=== PATIENT | female | born 1955 | race Caucasian/White ===

== ENCOUNTER 2017-05-06 12:08 | Inpatient (IN) | payer BC, MEDICARE ==
--- NOTE | 2017-05-06 13:15 | ER Document Report ---
ED Fall - General Mode of Arrival: Wheelchair Information source: Patient - HPI Patient complains to provider of: right leg pain Associated symptoms: Other - See above <MAIA PASTRANA - Last Filed: 05/06/17 16:33> <MARCUS SILVER - Last Filed: 05/06/17 19:50> - General Chief Complaint: Leg Pain Stated Complaint: RIGHT LEG PAIN Time Seen by Provider: 05/06/17 12:38 Notes: Patient is a 62 year old female who presents to the emergency department complaining of right knee pain after a fall just prior to arrival. Patient states she was on a step ladder that was not fully locked about 2 feet up and fell backwards landing on her butt. Patient reports she must have "twisted" her leg during the fall and complains of pain and swelling in her right knee and right lower leg with movement, as well as back pain. Patient states she has broken her right leg before and has hardware in her knee. Patient denies hitting her head, loss of consciousness, and neck pain. (MAIA PASTRANA) - Related data Allergies/Adverse Reactions: No Known Allergies Allergy (Unverified 05/06/17 14:14) Past Medical History - General Information source: Patient - Social History Smoking Status: Never Smoker Chew tobacco use (# tins/day): No Frequency of alcohol use: None Drug Abuse: None Family History: Reviewed & Not Pertinent - See above Psychiatric Medical History: Reports: Hx Depression Past Surgical History: Reports: Hx Abdominal Surgery - gasdtric bypass-2005, Hx Orthopedic Surgery - rt knee, bilateral wrist <MAIA PASTRANA - Last Filed: 05/06/17 16:33> Review of Systems - Review of Systems Constitutional: No symptoms reported EENT: No symptoms reported Cardiovascular: No symptoms reported Respiratory: No symptoms reported Gastrointestinal: No symptoms reported Genitourinary: No symptoms reported Female Genitourinary: No symptoms reported Musculoskeletal: See HPI, Back pain, Joint pain, Joint swelling. denies: Neck pain Skin: No symptoms reported Hematologic/Lymphatic: No symptoms reported Neurological/Psychological: denies: Lost consciousness -: Yes All other systems reviewed and negative <MAIA PASTRANA - Last Filed: 05/06/17 16:33> Physical Exam - Vital signs Interpretation: Normal - Back Back: Tender - L1-L4. No: CVA tenderness - Extremities General upper extremity: Normal inspection, Normal ROM, Normal strength General lower extremity: Tender - Knee Shoulder: Normal Arm: Normal Forearm: Normal Wrist: Normal Hand: Normal Hip: Normal Knee: Tender - Right knee, Joint effusion, Pain with ROM, Tender joint line - Neurological Neuro grossly intact: Yes Cognition: Normal Orientation: AAOx4 [place] Coma Scale Eye Opening: Spontaneous [place] Coma Scale Verbal: Oriented [place] Coma Scale Motor: Obeys Commands [place] Coma Scale Total: 15 Speech: Normal Motor strength normal: LUE, RUE, LLE, RLE Sensory: Normal - Psychological Associated symptoms: Normal affect, Normal mood - Skin Skin Temperature: Warm Skin Moisture: Dry Skin Color: Normal <MARCUS SILVER - Last Filed: 05/06/17 19:50> - Vital signs Vitals: Temp Pulse Resp BP Pulse Ox 98.2 F 67 16 118/59 L 96 05/06/17 12:43 05/06/17 12:43 05/06/17 12:43 05/06/17 12:43 05/06/17 12:43 Course - Laboratory Result Diagrams: 05/06/17 15:00 05/06/17 15:00 - Consults Dr. Lagunas Time consulted: 14:00 - Discussed patient's condition, Dr. Lagunas states no surgical intervention needed at this time <MAIA PASTRANA - Last Filed: 05/06/17 16:33> - Laboratory Result Diagrams: 05/06/17 15:00 05/06/17 15:00 - Diagnostic Test Radiology reviewed: Reports reviewed - Consults Dr. Lagunas Consulted provider: other - Called back ay 18:30. Pleae admit to Medicine Dr. Doyle Time consulted: 18:30 - medicate, call back after 1900 <MARCUS SILVER - Last Filed: 05/06/17 19:50> - Re-evaluation Re-evalutation: 05/06/17 19:46 Patient is a 62-year-old female who comes in after a fall off a ladder. She is a compression fracture and a sprain of her right knee. I have discussed her with orthopedics and they does not appear to be anything surgical at this time. Patient is comfortable when she is lying flat. When she attempts to get up she goes into severe pain in her back. She cannot weight-bear in her right knee. She becomes nauseated from the pain. Patient has been discussed with the hospitalist service and will be admitted for pain control. She is neurovascularly intact otherwise. (MARCUS SILVER) - Vital Signs Vital signs: Temp Pulse Resp BP Pulse Ox 98.2 F 72 16 123/65 94 05/06/17 12:43 05/06/17 16:07 05/06/17 16:07 05/06/17 16:07 05/06/17 16:07 - Laboratory Laboratory results interpreted by me: 05/06/17 05/06/17 15:00 15:00 Seg Neutrophils % 83.6 H Lymphocytes % 8.5 L Carbon Dioxide 21 L BUN 23 H Creatinine 0.48 L Discharge <MAIA PASTRANA - Last Filed: 05/06/17 16:33> - Discharge Admitting Provider: Hospitalist - [facility] Admitted: Medical Floor <MARCUS SILVER - Last Filed: 05/06/17 19:50> - Discharge Clinical Impression: Compression fracture of L1 lumbar vertebra Qualifiers: Encounter type: initial encounter Fracture type: closed Qualified Code(s): S32.010A - Wedge compression fracture of first lumbar vertebra, initial encounter for closed fracture Knee sprain Qualifiers: Encounter type: initial encounter Involved ligament of knee: other ligament Laterality: right Qualified Code(s): S83.8X1A - Sprain of other specified parts of right knee, initial encounter Condition: Stable Disposition: ADMITTED INPATIENT Referrals: REGLA ORTIZ MD [Primary Care Provider] - Follow up as needed Scribe Attestation: 05/06/17 19:46 I personally performed the services described in the documentation, reviewed and edited the documentation which was dictated to the scribe in my presence, and it accurately records my words and actions. (MARCUS SILVER) Scribe Documentation - Scribe Written by Dereck:: dereck Urbina, 05/06/17, 1489 acting as scribe for :: Beti <MAIA PASTRANA - Last Filed: 05/06/17 16:33>
[2017-05-06] MEDS ORDERED: FENTANYL CITRATE INJ/PF 100 MCG/2 ML AMPUL IV ONE ×2 (13:16→16:10)
[2017-05-06 15:13] LABS: ABSOLUTE LYMPHOCYTES (AUTO) 0.6 10^3/uL (0.5-4.7); ABSOLUTE MONOCYTES (AUTO) 0.5 10^3/uL (0.1-1.4); BASOPHILS % (AUTO) 0.1 % (0-2); EOSINOPHILS % (AUTO) 0.3 % (0-6); HEMATOCRIT 39.5 % (36.0-47.0); HEMOGLOBIN 12.6 g/dL (12.0-15.5); HGB HCT DIFFERENCE -1.7; LYMPHOCYTES % (AUTO) 8.5 % (13-45); MEAN CORPUSCULAR HEMOGLOBIN 29.7 pg (27.0-33.4); MEAN CORPUSCULAR VOLUME 93 fl (80-97); MONOCYTES % (AUTO) 7.5 % (3-13); RED BLOOD COUNT 4.25 10^6/uL (3.72-5.28); SEGMENTED NEUTROPHILS % (AUTO) 83.6 % (42-78); WHITE BLOOD COUNT 7.1 10^3/uL (4.0-10.5)
--- NOTE | 2017-05-06 15:16 | RADIOLOGY REPORT (SQ) ---
EXAM DESCRIPTION: KNEE RIGHT 4 VIEWS COMPLETED DATE/TIME: 05/06/2017 2:32 pm REASON FOR STUDY: fall, pain COMPARISON: None. NUMBER OF VIEWS: Four views. TECHNIQUE: AP, lateral, and both oblique radiographic images acquired of the right knee. LIMITATIONS: None. FINDINGS: MINERALIZATION: Osteopenic BONES: No acute displaced fracture is identified. Patient has 2 lag screws across the proximal right tibial metaphysis from old healed tibial plateau fracture JOINT: There is a fat fluid level in the suprapatellar recess indicating a fracture of the knee. Mil d chondrocalcinosis in the medial and lateral compartments. SOFT TISSUES: No soft tissue swelling. No radio-opaque foreign body. OTHER: No other significant finding. IMPRESSION: Lipoma hemarthrosis from fracture. A displaced fracture is not identified. Patient will undergo CT of the right knee shortly. TECHNICAL DOCUMENTATION: JOB ID: [id number] [employer]- All Rights Reserved
--- NOTE | 2017-05-06 15:18 | RADIOLOGY REPORT (SQ) ---
EXAM DESCRIPTION: L SPINE WHOLE COMPLETED DATE/TIME: 05/06/2017 2:32 pm REASON FOR STUDY: fall ,pain COMPARISON: None. NUMBER OF VIEWS: Five views including obliques. TECHNIQUE: AP, lateral, oblique, and sacral radiographic images acquired of the lumbar spine. LIMITATIONS: None. FINDINGS: MINERALIZATION: Osteoporotic SEGMENTATION: Normal. No transitional anatomy. ALIGNMENT: Normal. VERTEBRAE: L1 acute compression deformity with less than 25% overall loss of vertebral body height. DISCS: Preserved height. No significant osteophytes or end plate irregularity. POSTERIOR ELEMENTS: Pedicles and facets are intact. No pars defect or posterior arch defects. Bilat eral lower lumbar facet arthropathy at L4-5 and L5-S1. HARDWARE: None in the spine. PARASPINAL SOFT TISSUES: Normal. PELVIS: Intact as visualized. No fractures or worrisome bone lesions. SI joints intact. OTHER: Surgical clips in the left upper quadrant. At the edge of the field of view a left upper quad rant calcification/ossification is present in the soft tissues. IMPRESSION: Acute L1 vertebral body compression deformity with less than 25% overall loss of height. TECHNICAL DOCUMENTATION: JOB ID: [id number] [employer]- All Rights Reserved
--- NOTE | 2017-05-06 15:20 | RADIOLOGY REPORT (SQ) ---
EXAM DESCRIPTION: CHEST PA/LAT COMPLETED DATE/TIME: 05/06/2017 2:32 pm REASON FOR STUDY: fall, pain COMPARISON: None. EXAM PARAMETERS: NUMBER OF VIEWS: two views TECHNIQUE: Digital Frontal and Lateral radiographic views of the chest acquired. RADIATION DOSE: NA LIMITATIONS: none FINDINGS: LUNGS AND PLEURA: No opacities, masses or pneumothorax. No pleural effusion. MEDIASTINUM AND HILAR STRUCTURES: No masses or contour abnormalities. HEART AND VASCULAR STRUCTURES: Heart normal size. No evidence for failure. BONES: No acute findings. HARDWARE: Surgical clips left axilla OTHER: Surgical clips at the GE junction with radiopaque material present, possibly barium IMPRESSION: No acute findings TECHNICAL DOCUMENTATION: JOB ID: [id number] [employer]- All Rights Reserved
--- NOTE | 2017-05-06 15:28 | RADIOLOGY REPORT (SQ) ---
EXAM DESCRIPTION: CT LUMBAR SPINE WITHOUT COMPLETED DATE/TIME: 05/06/2017 2:52 pm REASON FOR STUDY: fall, pain COMPARISON: Lumbar spine plain films same date TECHNIQUE: Axial images acquired through the lumbar spine without intravenous contrast. Images revi ewed with lung, soft tissue and bone windows. Reconstructed coronal and sagittal MPR images reviewed . All images stored on PACS. All CT scanners at this facility use dose modulation, iterative reconstruction, and/or weight based d osing when appropriate to reduce radiation dose to as low as reasonably achievable (ALARA). [facility]: Dose Right [facility]: CareDose [facility]: Dose Right [facility]: Teradose 4D [facility]: [employer] RADIATION DOSE: 21.41 mGy. LIMITATIONS: None. FINDINGS: SEGMENTATION: Normal. No transitional anatomy. ALIGNMENT: Normal. VERTEBRAL BODIES: Acute L1 compression deformity with less than 25% loss of height of the anterior ve rtebral body. Fracture lines do not appear to extend into the pedicles. There is no significant ret ropulsion of bony fragments. The other lumbar vertebral bodies are intact. DISCS: T12-L1 and L1-2 are unremarkable. At L2-3, mild central canal stenosis results from broad diffuse disc bulge and moderate bilateral fac et and ligament hypertrophy. This is best shown on axial image 43. There is no significant foramina l narrowing. At L3-4, borderline central canal stenosis results from mild diffuse posterior disc bulging and moder ate bilateral facet and ligament hypertrophy. Mild bilateral inferior foraminal narrowing without ex iting L3 nerve root impingement. At L4-5, moderate to high-grade central canal stenosis results from broad diffuse posterior disc bulg e and bony spurring, and bulky bilateral facet and ligament hypertrophy. This is best shown on axial image 68. Mild bilateral inferior foraminal narrowing without exiting L4 nerve root impingement. At L5-S1, no central or foraminal encroachment is present. Moderate bilateral facet hypertrophy. PEDICLES, TRANSVERSE PROCESSES: No fractures. No dislocation. No acute findings. FACETS, POSTERIOR ELEMENTS: No fractures. No dislocation. Multilevel arthropathy as above. HARDWARE: None in the spine. VISUALIZED RIBS: No fractures. SOFT TISSUES: No significant or acute finding in adjacent soft tissues. OTHER: No other significant finding. IMPRESSION: Acute L1 vertebral body compression deformity with less than 25% overall loss of height. TECHNICAL DOCUMENTATION: JOB ID: [id number] Quality ID # [id number]: Final reports with documentation of one or more dose reduction techniques (e.g., Au tomated exposure control, adjustment of the mA and/or kV according to patient size, use of iterative reconstruction technique) 2010 [employer]- All Rights Reserved
--- NOTE | 2017-05-06 15:35 | RADIOLOGY REPORT (SQ) ---
EXAM DESCRIPTION: CT RT LOWER EXTREMITY WITHOUT COMPLETED DATE/TIME: 05/06/2017 2:53 pm REASON FOR STUDY: fall, pain COMPARISON: Right knee films same date Right knee films 08/07/2010 CT right knee 08/06/2010 TECHNIQUE: CT scan of the right knee performed without intravenous or oral contrast. Images reviewe d with soft tissue and bone windows. Reconstructed coronal and sagittal MPR images reviewed. All im ages stored on PACS. All CT scanners at this facility use dose modulation, iterative reconstruction, and/or weight based d osing when appropriate to reduce radiation dose to as low as reasonably achievable (ALARA). [facility]: Dose Right [facility]: CareDose [facility]: Dose Right [facility]: Teradose 4D [facility]: [employer] RADIATION DOSE: 4.12 mGy. LIMITATIONS: None. FINDINGS: Bones are osteopenic. There is a definite lipohemarthrosis with a fat fluid level in the suprapatellar recess, best shown on axial image 38. There are 2 lag screws across the proximal tibial metaphysis, stabilizing the remote prior minimally depressed lateral tibial plateau fracture. No definite acute displaced fracture of the distal femur, proximal tibia, or proximal fibula is seen on today's CT. There is chondrocalcinosis in the medial and lateral compartments. No significant joint space narrow ing. No malalignment. IMPRESSION: Radiographically occult fracture of the right knee with a lipohemarthrosis TECHNICAL DOCUMENTATION: JOB ID: [id number] Quality ID # [id number]: Final reports with documentation of one or more dose reduction techniques (e.g., Au tomated exposure control, adjustment of the mA and/or kV according to patient size, use of iterative reconstruction technique) 2010 [employer]- All Rights Reserved
[2017-05-06 15:48] LABS: ANION GAP 12 (5-19); BLOOD UREA NITROGEN 23 mg/dL (7-20); CALCIUM 9.7 mg/dL (8.4-10.2); CARBON DIOXIDE 21 mmol/L (22-30); CHLORIDE 107 mmol/L (98-107); CREATININE RESULT 0.48 mg/dL (0.52-1.25); GLUCOSE 94 mg/dL (75-110); SODIUM 139.9 mmol/L (137-145)
[2017-05-06] MEDS ORDERED: ONDANSETRON HCL INJ/PF 4 MG/2 ML SDV IV ONE (18:24)
[2017-05-06] MEDS ORDERED: MELOXICAM 15 MG TABLET PO ONE (18:34)
[2017-05-06] MEDS ORDERED: CYCLOBENZAPRINE HCL 10 MG TABLET PO ONE (18:34)
[2017-05-06] MEDS ORDERED: DEXAMETHASONE SOD PHOSPHATE INJ 4 MG/1 ML VIAL IV ONE (18:34)
[2017-05-06] MEDS ORDERED: ACETAMINOPHEN 325 MG TABLET PO PRN (20:34)
[2017-05-06] MEDS ORDERED: MAGNESIUM HYDROXIDE SUSP 30 ML UDCUP PO PRN (20:34)
[2017-05-06] MEDS ORDERED: MAG HYDROX/AL HYDROX/SIMETH SUSP 30 ML UDCUP PO PRN (20:34)
[2017-05-06] MEDS ORDERED: PROMETHAZINE HCL 25 MG TABLET PO PRN (20:37)
[2017-05-06 20:55] LABS: APPEARANCE,URINE CLEAR; BILIRUBIN,URINE NEGATIVE (NEGATIVE); GLUCOSE, URINE NEGATIVE (NEGATIVE); KETONES,URINE TRACE mg/dL (NEGATIVE); LEUKOCYTE ESTERASE,URINE NEGATIVE (NEGATIVE); NITRITE,URINE NEGATIVE (NEGATIVE); PROTEIN,URINE NEGATIVE (NEGATIVE); URINE SPECIFIC GRAVITY 1.023; UROBILINOGEN,URINE NEGATIVE mg/dL (<2.0)
--- NOTE | 2017-05-06 21:01 | PDOC H&P ---
History of Present Illness Admission Date/PCP: 05/06/17 20:30 REGLA ORTIZ MD, [facility] Patient complains of: fall w/back, rt. knee pain History of Present Illness: TANA SILVA is a 62 year old female with underlying arthritis, easy bruising, mild anxiety and depression without suicidal or homicidal ideation, who presents to the emergency room after falling off a step ladder from a height of 20 inches. ladder apparently was not fully locked. She fell backwards, landing on her butt on a hardwood floor. States she must have "twisted" her right leg during the fall. Denies hitting her head, loss of consciousness, or neck pain. Prior to the above event, no complaints, including nausea vomiting, fever or chills. She is status post previous repair of a right tibial plateau fracture. Initial attempts by the emergency room physician were to discharge the patient, but she simply has too much pain upon even sitting up in bed. Prior to my being called, emergency room physician did discuss the patient with on-call orthopedics; surgery not felt necessary. Right knee immobilizer has been applied by the emergency room physician. Patient has been discussed with emergency room physician who evaluated the patient. . Laboratory results are listed in [facility] and are reviewed. X-ray summary results are listed below, with full report(s) reviewed. . Social history/personal habits: . Lives alone. No children. Self- employed senior property accountant. No use of alcohol tobacco or illicit drugs. No known drug allergies. Home medications initially autopopulated into [employer] may not accurately reflect patient's true medications, dosages, and/or frequencies. 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 According to patient, current medications include Prozac, Abilify, Provigil, and Topamax, the last of which she takes for insomnia. Patient not completely certain of dosages; all meds taken once daily. REVIEW OF SYSTEMS: Constitutional: No fever or chills. Eyes: Wears contacts for reading. ENT: No swallowing problems or complaints. Denies hearing loss. Pulmonary: No current complaints. Cardiovascular: No current complaints, including chest pain. Gastrointestinal: No current complaints, including nausea or vomiting. Skin: No current complaints, including rashes. Hematologic: Easy bruising. Neurologic: No current complaints, including numbness or tingling. Musculoskeletal: See history and present illness. Psychiatric: Mild anxiety and depression. Denies suicidal or homicidal ideation. Endocrine: No current complaints, including polyuria. Genitourinary: No current complaints, including dysuria. PHYSICAL EXAMINATION: 5 feet 8 inches tall. 81.6 kg. BMI 27.4 kg/m. Blood pressure 131/85. 95% saturation on room air. Respirations are 16 and unlabored. Pulse 75 and regular. Temperature 98.2. Slightly overweight otherwise well-nourished well-developed female appearing a bit younger than her stated age. Pleasant awake alert and cooperative. Appears to feel a bit under the weather, so to speak. Mildly anxious, without agitation. Female emergency room nurse Jackie is present. Skin is warm and dry. No grossly obvious evidence of rash in areas of skin examined. No subcutaneous nodules palpated. ENT: Hearing grossly normal to normal conversation. Tongue midline on protrusion pink and slightly tacky. Eyes: No scleral icterus. Pupils equal and reactive to light at 4 mm. [place] conjunctivae. No raccoon eyes. Neck is supple and nontender to gentle active range of motion and palpation. Midline trachea. No palpable thyroid nodule mass enlargement or tenderness. Lymphatic: No palpable cervical or clavicular nodes. Neck and lymphatic exams limited by patient body habitus. Psychiatric: Reasonable insight into acute and chronic medical issues. Oriented to time location and why here. Lungs: Auscultation reveals clear and equal breath sounds bilaterally. No use of accessory respiratory muscles. Cardiovascular: Heart regular rate and rhythm, without gallop murmur or rub. No carotid or abdominal aortic bruits. No ankle or pedal edema. Palpable left dorsalis pedis and right posterior tibial pulses. Abdomen:soft slightly distended nontender with positive bowel sounds. Unable to adequately evaluate abdomen for masses or organomegaly due to distention. Extremities: Feet are warm and dry. No left calf tenderness to compression. No grossly obvious visual evidence of left calf swelling. Gentle manipulation of left lower extremity fails to reveal any obvious evidence of injury or instability to knee hip or ankle. Examination of right lower extremity limited by knee immobilizer in place; device is left in place. No manipulation of right lower extremity due to injury. Neurologic: Moves upper extremities grossly normally. Left patellar reflex absent. Absent Babinski. Light touch is intact at feet. Dorsiflexion and plantarflexion of feet 5 / 5 and symmetric. Past Medical History Cardiac Medical History: Denies: Congestive Heart Failure, DVT, Myocardial Infarction, Hyperlipidema, Hypertension - History of same; resolved with weight loss after gastric bypass surgery., Pulmonary Embolism Pulmonary Medical History: Denies: Asthma, Chronic Obstructive Pulmonary Disease (COPD), Sleep Apnea EENT Medical History: Reports: Eyes - Wears contacts Denies: Ears, Throat Neurological Medical History: Reports: Seizures - As a child; none for more than 35 years. On no medication for same. Denies: Hemorrhagic CVA, Ischemic CVA Endocrine Medical History: Denies: Diabetes Mellitus Type 1, Diabetes Mellitus Type 2, Hyperthyroidism, Hypothyroidism Renal/ Medical History: Reports: None Malignancy Medical History: Reports: Skin Cancer - Melanoma, status post left axillary lymphadenectomy for same GI Medical History: Denies: Cirrhosis, Gastroesophageal Reflux Disease, Hiatal Hernia, Peptic Ulcer Disease Musculoskeltal Medical History: Reports: Arthritis Skin Medical History: Reports: Other - History of melanoma Psychiatric Medical History: Reports: Depression, General Anxiety Disorder Denies: Alcohol Dependency, Substance Abuse, Tobacco Dependency Hematology: Reports: Other - Easy bruising Infectious Medical History: Denies: Clostridium Difficile, Hepatitis B, Hepatitis C, Methicillin- Resistant Staph Aureus Past Surgical History Past Surgical History: Reports: Orthopedic Surgery - rt knee, right wrist, Other - Excision of melanoma with left axillary lymphadenectomy Social History Information Source: Patient, Emergency Med Personnel, [facility] Records Lives with: Alone Smoking Status: Never Smoker Frequency of Alcohol Use: None Drugs: None - Advance Directive Resuscitation Status: Full Code Surrogate healthcare decision maker:: Brother Travon Family History Family History: Reviewed & Not Pertinent - See above Parental Family History Reviewed: Yes - Mother of cancer; father after myocardial infarction. Children Family History Reviewed: NA Sibling(s) Family History Reviewed.: Yes - Older brother with coronary artery disease. Medication/Allergy Home Medications: Aripiprazole [Abilify 10 mg Tablet] 10 mg PO QHS 05/07/17 Ascorbic Acid [Vitamin C 500 mg Tablet] 500 mg PO DAILY 05/07/17 Ca Carbonate/Vitamin D3/Vit K [Citracal Soft Chew] 1 tab.chew PO DAILY 05/07/17 Cyanocobalamin (Vitamin B-12) [Nascobal] 1 each NS Q7D 05/07/17 Ergocalciferol (Vitamin D2) [Vitamin D2] 50,000 unit PO DAILY 05/07/17 Fluoxetine HCl [Prozac] 80 mg PO DAILY 05/07/17 Mv,Ca,Min/Iron Fum/FA/Vit K [[employer] Tablet Chewable] 1 tab PO DAILY Topiramate [Topamax] 200 mg PO QHS 05/07/17 Allergies/Adverse Reactions: No Known Allergies Allergy (Unverified 05/06/17 14:14) Physical Exam Vital Signs: Temp Pulse Resp BP Pulse Ox 98.2 F 72 16 123/65 94 05/06/17 12:43 05/06/17 16:07 05/06/17 16:07 05/06/17 16:07 05/06/17 19:26 Results Impressions: Knee X-Ray 05/06/17 13:15 IMPRESSION: Lipoma hemarthrosis from fracture. A displaced fracture is not identified. Patient will undergo CT of the right knee shortly. Lumbar Spine X-Ray 05/06/17 13:15 IMPRESSION: Acute L1 vertebral body compression deformity with less than 25% overall loss of height. Chest X-Ray 05/06/17 13:18 IMPRESSION: No acute findings Lower Extremity CT 05/06/17 14:20 IMPRESSION: Radiographically occult fracture of the right knee with a lipohemarthrosis Lumbar Spine CT 05/06/17 14:20 IMPRESSION: Acute L1 vertebral body compression deformity with less than 25% overall loss of height. Assessment & Plan - Diagnosis (1) Compression fracture of L1 lumbar vertebra Qualifiers: Encounter type: initial encounter Fracture type: closed Qualified Code(s): S32.010A - Wedge compression fracture of first lumbar vertebra, initial encounter for closed fracture Is this a current diagnosis for this admission?: YesPlan: Pain control. Orthopedic consult. Physical therapy consult. (2) Knee fracture, right Is this a current diagnosis for this admission?: YesPlan: Pain control. Orthopedic consult. Physical therapy consult. Knee immobilizer to remain in place. I have strongly encouraged patient not to get out of bed, to avoid a fall with injury. Knee high SCDs for DVT prophylaxis, along with subcutaneous Lovenox. Impression and plans were discussed with patient who concurs. Time spent in evaluation and management of patient: 62 minutes. (3) Anxiety Is this a current diagnosis for this admission?: YesPlan: Resume home medications as appropriate once these have been determined and reviewed. (4) Depression Qualifiers: Depression Type: unspecified Qualified Code(s): F32.9 - Major depressive disorder, single episode, unspecified Is this a current diagnosis for this admission?: YesPlan: Resume home medications as appropriate once these have been determined and reviewed.
[2017-05-06 21:47] LABS: ANION GAP 9 (5-19); BLOOD UREA NITROGEN 16 mg/dL (7-20); CALCIUM 9.5 mg/dL (8.4-10.2); CARBON DIOXIDE 23 mmol/L (22-30); CHLORIDE 103 mmol/L (98-107); CREATININE RESULT 0.42 mg/dL (0.52-1.25); GLUCOSE 139 mg/dL (75-110); POTASSIUM 4.1 mmol/L (3.6-5.0); SODIUM 134.6 mmol/L (137-145)
[2017-05-06] MEDS: OXYCODONE HCL IR 5 MG TABLET PO PRN (22:00)
[2017-05-06] MEDS ORDERED: ENOXAPARIN SODIUM INJ 40 MG/0.4 ML DISP.SYRIN SUBCUT ONE (22:00)
[2017-05-07] MEDS: MORPHINE SULFATE 10 MG/ML INJ IV PRN ×3 (04:43→22:12)
[2017-05-07] MEDS: ENOXAPARIN SODIUM INJ 40 MG/0.4 ML DISP.SYRIN SUBCUT SCH (11:05)
[2017-05-07] MEDS: DOCUSATE SODIUM 100 MG CAPSULE PO SCH ×2 (11:06→17:38)
--- NOTE | 2017-05-07 12:51 | PDOC PROGRESS REPORT ---
Subjective Progress Note for:: 05/07/17 Subjective:: Patient seen on morning rounds. She is sleeping in bed. She awakens easily. She continues to have back and right knee pain. She denies any shortness of breath, or dyspnea. She denies any nausea, vomiting or abdominal pain. She has no other complaints at the present time. Remaining review of systems are negative. Physical Exam Vital Signs: Temp Pulse Resp BP Pulse Ox 97.8 F 55 L 12 122/68 97 05/07/17 11:43 05/07/17 11:43 05/07/17 11:43 05/07/17 11:43 05/07/17 11:43 Intake & Output 05/06/17 05/07/17 05/08/17 06:59 06:59 06:59 Intake Total 4 Output Total 1600 Balance -1596 Weight 84.1 kg General appearance: PRESENT: no acute distress, well-developed, well-nourished Head exam: PRESENT: atraumatic, normocephalic Eye exam: PRESENT: conjunctiva pink, EOMI, PERRLA. ABSENT: scleral icterus Ear exam: PRESENT: normal external ear exam Mouth exam: PRESENT: moist, tongue midline Neck exam: ABSENT: carotid bruit, JVD, lymphadenopathy, thyromegaly Respiratory exam: PRESENT: clear to auscultation ann. ABSENT: rales, rhonchi, wheezes Cardiovascular exam: PRESENT: RRR. ABSENT: diastolic murmur, rubs, systolic murmur Pulses: PRESENT: normal dorsalis pedis pul Vascular exam: PRESENT: normal capillary refill GI/Abdominal exam: PRESENT: normal bowel sounds, soft. ABSENT: distended, guarding, mass, organolmegaly, rebound, tenderness Rectal exam: PRESENT: deferred Extremities exam: PRESENT: joint swelling - right knee in immobilizer, tenderness. ABSENT: calf tenderness, clubbing, pedal edema Neurological exam: PRESENT: alert, awake, oriented to person, oriented to place , oriented to time, oriented to situation, CN II-XII grossly intact. ABSENT: motor sensory deficit Psychiatric exam: PRESENT: appropriate affect, normal mood. ABSENT: homicidal ideation, suicidal ideation Skin exam: PRESENT: dry, intact, warm. ABSENT: cyanosis, rash Results Laboratory Results: 05/06/17 21:22 05/06/17 05/06/17 20:40 21:22 Sodium 134.6 L Potassium 4.1 Chloride 103 Carbon Dioxide 23 Anion Gap 9 BUN 16 Creatinine 0.42 L Est GFR ( Amer) > 60 Est GFR (Non-Af Amer) > 60 Glucose 139 H Calcium 9.5 Urine Color YELLOW Urine Appearance CLEAR Urine pH 5.0 Ur Specific [place] 1.023 Urine Protein NEGATIVE Urine Glucose (UA) NEGATIVE Urine Ketones TRACE H Urine Blood NEGATIVE Urine Nitrite NEGATIVE Ur Leukocyte Esterase NEGATIVE Urine WBC (Auto) 1 Urine RBC (Auto) 2 Impressions: Knee X-Ray 05/06/17 13:15 IMPRESSION: Lipoma hemarthrosis from fracture. A displaced fracture is not identified. Patient will undergo CT of the right knee shortly. Lumbar Spine X-Ray 05/06/17 13:15 IMPRESSION: Acute L1 vertebral body compression deformity with less than 25% overall loss of height. Chest X-Ray 05/06/17 13:18 IMPRESSION: No acute findings Lower Extremity CT 05/06/17 14:20 IMPRESSION: Radiographically occult fracture of the right knee with a lipohemarthrosis Lumbar Spine CT 05/06/17 14:20 IMPRESSION: Acute L1 vertebral body compression deformity with less than 25% overall loss of height. Assessment & Plan - Diagnosis (1) Compression fracture of L1 lumbar vertebra Qualifiers: Encounter type: initial encounter Fracture type: closed Qualified Code(s): S32.010A - Wedge compression fracture of first lumbar vertebra, initial encounter for closed fracture Is this a current diagnosis for this admission?: YesPlan: Continue pain medication. Ortho and PT consults (2) Knee fracture, right Is this a current diagnosis for this admission?: YesPlan: Immobilizer, ortho consult. PT consult (3) Anxiety Is this a current diagnosis for this admission?: YesPlan: Continue home medications (4) Depression Qualifiers: Depression Type: unspecified Qualified Code(s): F32.9 - Major depressive disorder, single episode, unspecified Is this a current diagnosis for this admission?: YesPlan: Continue home medications - Time Time Spent with patient: 25-34 minutes Critical Time spent with patient: 15-24 minutes Medications reviewed and adjusted accordingly: Yes Anticipated discharge: Home with Homehealth
[2017-05-07] MEDS: OXYCODONE HCL IR 5 MG TABLET PO PRN (14:16)
[2017-05-08] MEDS: MORPHINE SULFATE 10 MG/ML INJ IV PRN ×2 (05:11→19:51)
[2017-05-08 05:47] LABS: PROTHROMBIN TIME 12.7 SEC (11.4-15.4)
[2017-05-08 05:48] LABS: PARTIAL THROMBOPLASTIN TIME 31.5 SEC (23.5-35.8)
[2017-05-08] MEDS ORDERED: DOCUSATE SODIUM 100 MG CAPSULE PO PRN (06:41)
[2017-05-08] MEDS: DOCUSATE SODIUM 100 MG CAPSULE PO SCH ×2 (10:45→17:12)
[2017-05-08] MEDS: LIDOCAINE 5% (700 MG) TRANSDERMAL ADH..PATCH TP SCH (10:45)
[2017-05-08] MEDS: ENOXAPARIN SODIUM INJ 40 MG/0.4 ML DISP.SYRIN SUBCUT SCH (11:51)
--- NOTE | 2017-05-08 13:05 | RADIOLOGY REPORT (SQ) ---
EXAM DESCRIPTION: MRI LUMBAR SPINE WITHOUT COMPLETED DATE/TIME: 05/08/2017 11:55 am REASON FOR STUDY: evaluation for kyphoplasty DX: L1 compression fx COMPARISON: None. TECHNIQUE: Sagittal and Axial imaging includes T1, T2, STIR and gradient echo sequences. Coronal T2/ HASTE imaging. LIMITATIONS: None. FINDINGS: VISUALIZED UPPER ABDOMEN: Limited evaluation. No acute or suspicious findings suggested. SEGMENTATION: No transitional anatomy. The lowest well-developed disc space is labeled L5-S1. ALIGNMENT: Anatomic. VERTEBRAE: There is an acute anterior wedge compression fracture involving the body of L1 with approx imately 25% loss of height. No extension to the pedicles. No retropulsion. BONE MARROW: Normal. No marrow replacement or reactive changes. DISC SIGNAL: Normal. No significant abnormal signal or loss of height. POSTERIOR ELEMENTS: Generally intact. No pars defect evident. HARDWARE: None in the spine. CORD AND CONUS: Normal in size and signal intensity. Conus at the appropriate level. SOFT TISSUES: No aortic aneurysm seen. No bulky retroperitoneal adenopathy or mass. No paraspinal mas s or fluid. L1-L2: No significant spinal stenosis or exit foraminal stenosis. L2-L3: No significant spinal stenosis or exit foraminal stenosis. L3-L4: No significant spinal stenosis or exit foraminal stenosis. L4-L5: Disc bulge. Facet and ligamentous hypertrophy with lateral recess narrowing. Mild central ca nal stenosis. L5-S1: No significant spinal stenosis or exit foraminal stenosis. LOWER THORACIC: Incompletely imaged. No stenosis seen. SACRUM: Visualized upper sacrum intact. OTHER: No other significant findings. IMPRESSION: Acute L1 compression fracture with approximately 25% loss of height, no retropulsion, an d no extension to the pedicles. Amenable to kyphoplasty. Mild spinal stenosis L4-5. TECHNICAL DOCUMENTATION: JOB ID: [id number] [employer]- All Rights Reserved
--- NOTE | 2017-05-08 14:14 | PDOC PROGRESS REPORT ---
Subjective Progress Note for:: 05/08/17 Subjective:: Patient seen on rounds. She was getting an MRI earlier on rounds. MRI shows no significant problems other than [id number]. She continues to have back and right knee pain, but it is better than yesterday.Discussed the need for her to get out of bed with physical therapy and ambulate. She denies any shortness of breath, or dyspnea. She denies any nausea, vomiting or abdominal pain. She has no other complaints at the present time. Remaining review of systems are negative. Physical Exam Vital Signs: Temp Pulse Resp BP Pulse Ox 97.4 F 68 16 129/68 H 94 05/08/17 12:42 05/08/17 12:42 05/08/17 12:42 05/08/17 12:42 05/08/17 12:42 Intake & Output 05/07/17 05/08/17 05/09/17 06:59 06:59 06:59 Intake Total 4 1010 Output Total 1600 2600 Balance -1596 -1590 Weight 84.1 kg 84.3 kg General appearance: PRESENT: no acute distress, well-developed, well-nourished Head exam: PRESENT: atraumatic, normocephalic Eye exam: PRESENT: conjunctiva pink, EOMI, PERRLA. ABSENT: scleral icterus Ear exam: PRESENT: normal external ear exam Mouth exam: PRESENT: moist, tongue midline Neck exam: ABSENT: carotid bruit, JVD, lymphadenopathy, thyromegaly Respiratory exam: PRESENT: clear to auscultation ann. ABSENT: rales, rhonchi, wheezes Cardiovascular exam: PRESENT: RRR. ABSENT: diastolic murmur, rubs, systolic murmur Pulses: PRESENT: normal dorsalis pedis pul Vascular exam: PRESENT: normal capillary refill GI/Abdominal exam: PRESENT: normal bowel sounds, soft. ABSENT: distended, guarding, mass, organolmegaly, rebound, tenderness Rectal exam: PRESENT: deferred Extremities exam: PRESENT: full ROM. ABSENT: calf tenderness, clubbing, pedal edema Neurological exam: PRESENT: alert, awake, oriented to person, oriented to place , oriented to time, oriented to situation, CN II-XII grossly intact. ABSENT: motor sensory deficit Psychiatric exam: PRESENT: appropriate affect, normal mood. ABSENT: homicidal ideation, suicidal ideation Skin exam: PRESENT: dry, intact, warm. ABSENT: cyanosis, rash Results Laboratory Results: 05/06/17 21:22 Impressions: Knee X-Ray 05/06/17 13:15 IMPRESSION: Lipoma hemarthrosis from fracture. A displaced fracture is not identified. Patient will undergo CT of the right knee shortly. Lumbar Spine X-Ray 05/06/17 13:15 IMPRESSION: Acute L1 vertebral body compression deformity with less than 25% overall loss of height. Chest X-Ray 05/06/17 13:18 IMPRESSION: No acute findings Lower Extremity CT 05/06/17 14:20 IMPRESSION: Radiographically occult fracture of the right knee with a lipohemarthrosis Lumbar Spine CT 05/06/17 14:20 IMPRESSION: Acute L1 vertebral body compression deformity with less than 25% overall loss of height. Lumbar Spine MRI 05/08/17 00:00 IMPRESSION: Acute L1 compression fracture with approximately 25% loss of height , no retropulsion, and no extension to the pedicles. Amenable to kyphoplasty. Mild spinal stenosis L4-5. Assessment & Plan - Diagnosis (1) Compression fracture of L1 lumbar vertebra Qualifiers: Encounter type: initial encounter Fracture type: closed Qualified Code(s): S32.010A - Wedge compression fracture of first lumbar vertebra, initial encounter for closed fracture Is this a current diagnosis for this admission?: YesPlan: Continue pain medication. Ortho and PT consults. Plan for kyphoplasty on Tuesday with Dr Hale (2) Knee fracture, right Is this a current diagnosis for this admission?: YesPlan: Immobilizer, ortho consult. PT consult (3) Anxiety Is this a current diagnosis for this admission?: YesPlan: Continue home medications (4) Depression Qualifiers: Depression Type: unspecified Qualified Code(s): F32.9 - Major depressive disorder, single episode, unspecified Is this a current diagnosis for this admission?: YesPlan: Continue home medications (5) Breast cancer Qualifiers: Breast location: unspecified site of breast Laterality: left Is this a current diagnosis for this admission?: YesPlan: Patient is status post mastectomy in Oct. Has great deal of anxiety using left arm for fear of developing lymphedema. Patient reassured normal use and function will not cause that problem - Time Time Spent with patient: 25-34 minutes Critical Time spent with patient: 15-24 minutes Medications reviewed and adjusted accordingly: Yes Anticipated discharge: Home with Homehealth Within: within 24 hours
[2017-05-08] MEDS ORDERED: CYANOCOBALAMIN NS SCH (14:30)
[2017-05-08] MEDS: OXYCODONE HCL IR 5 MG TABLET PO PRN ×2 (15:38→21:53)
[2017-05-08] MEDS: ARIPIPRAZOLE 5 MG TABLET PO SCH (21:52)
[2017-05-08] MEDS: TOPIRAMATE 100 MG TABLET PO SCH (21:52)
[2017-05-08] MEDS ORDERED: (PENDING PHARMACY ID) (Topiramate [Topamax] 200 MG) PO SCH (22:00)
[2017-05-08] MEDS ORDERED: (PENDING PHARMACY ID) (Aripiprazole [Abilify 10 Mg Tablet] 10 MG) PO SCH (22:00)
[2017-05-09] MEDS: MORPHINE SULFATE 10 MG/ML INJ IV PRN ×3 (04:42→22:46)
[2017-05-09] MEDS ORDERED: ACETAMINOPHEN 325 MG TABLET PO PRN (08:54)
[2017-05-09] MEDS ORDERED: MAGNESIUM HYDROXIDE SUSP 30 ML UDCUP PO PRN (08:54)
[2017-05-09] MEDS ORDERED: MAG HYDROX/AL HYDROX/SIMETH SUSP 30 ML UDCUP PO PRN (08:57)
[2017-05-09] MEDS: FLUOXETINE HCL 20 MG CAPSULE PO SCH (10:18)
[2017-05-09] MEDS: OXYCODONE HCL IR 5 MG TABLET PO PRN ×2 (10:19→18:15)
[2017-05-09] MEDS: ENOXAPARIN SODIUM INJ 40 MG/0.4 ML DISP.SYRIN SUBCUT SCH (10:20)
[2017-05-09] MEDS: LIDOCAINE 5% (700 MG) TRANSDERMAL ADH..PATCH TP SCH (10:20)
--- NOTE | 2017-05-09 12:15 | Physician Advisory Note ---
Physician Advisor ProgressNote .: Pursuant to the plan for [facility], I have reviewed the medical record for this patient. Physician Advisor Statement: Please consider documentin. "Acute hyponatremia, suspect due to intravascular volume depletion" 2. "Continued acute pain requiring frequent/recurrent IV morphine 05/07 - 05/08. " 3. ? - "suspect malnutrition given low Cr 0.42" STatus - approp to change to Inpt as of 05/08 given ongoing IV opioid needs for adequate pain control - 4x in 25 hrs. 62yo pt w/underlying dep/anx, past melanoma per PT note (? & breast CA, or was melanoma on breast?), prior gastric bypass & Rt knee surg presented w/Rt knee pain & low back pain after fall, found to have comp fx L2 acue & occult fx Rt knee w/lipohemarthrosis. Severe back pain w/attempting to get up. Unable to wt-bear Rt knee - nausea from pain of attempting. Given Fentanyl IV x2 in ED on 05/06 PM. Then required morphine 3 times on 05/07, again on 05/08 AM & 05/08 PM for pain control - even though as of 05/08, she had not yet tried to get OOB w/PT. Still needing IV morphine this AM. Thanks! CK
--- NOTE | 2017-05-09 13:18 | CONSULTATION REPORT E ---
Consultation Report NAME: TANA SILVA : 1955 AGE: 62Y DATE: 05/09/2017 420 A TO: NATALIE LINCOLN M.D. FROM: SHAKIRA LEIGH M.D. Requesting Physician CONSULTATION REQUEST: Dr. Franklyn Lagunas for patient with new acute L1 depression fracture. HISTORY OF PRESENT ILLNESS: The patient is a 62-year-old female with underlying history of gastric bypass, osteoporosis, easy bruising, depressed, anxiety who presented to [facility] after a fall on 05/06 from a step ladder. She notes that it was not locked in place. She fell backwards and landed on her tailbone. She states that she had pain with both her rjght leg as it twisted on the way down and in her lower back. She denies hitting her head or loss of consciousness or neck pain. She denies any prior history other than chronic low back pain but this is distinctly different and it is sharp and pain with standing. She notes also pain with her right knee and notes that she is status post a previous repair of her right tibial plateau fractures. She was seen in the emergency room and initially was going to be discharged but given unable to ambulate, manufacturing plant controller orthopedics was called who felt that she should be treated non-operatively and was placed in a right knee immobilizer. She continues to have difficulty with ambulation and standing from both pain in her knee and pain in her lower back. She also had images as previously noted showing on CT new L1 compression fracture with 25% loss of height without significant retropulsion. She notes that she would be amenable to kyphoplasty in the future. She denies any recent fevers or infections or urinary symptoms or use of blood thinners. She denies prior use of opioids. She notes significant pain relief when she takes her oral oxycodone but still unable to ambulate. SOCIAL HISTORY: Lives alone. No children. Denies tobacco, alcohol, or illicits. ALLERGIES: No known drug allergies. MEDICATIONS: Please see in electronic medical record. REVIEW OF SYSTEMS: Unchanged and reviewed with patient from [facility] by Dr. Leigh PHYSICAL EXAMINATION: GENERAL: Lying in bed with knee immobilizer in place. Well nourished, well developed female awake, alert, and cooperative. SKIN: Warm and dry. No obvious rashes but noted knee immobilizer as before. ENT: Grossly hearing normal. Tongue midline. Eyes: Pupils equal and reactive to light. EOMI. Neck is supple. Lymphatic: No palpable nodes. PSYCHIATRIC: Alert and oriented x3. Normal mood and affect. LUNGS: Clear to auscultation bilaterally. CARDIOVASCULAR: Regular rate and rhythm. ABDOMEN: Slightly tender to palpation with no peritoneal signs. EXTREMITIES: Left extremity with normal pulsations and grossly normal. NEUROLOGIC: Moves all extremities grossly. SPINE: Tenderness to palpation after rolling to the side at around L1. Light touch is intact. PAST MEDICAL HISTORY: Of note, skin cancer melanoma. Notes easy bruising. Reports seizures as a child. FAMILY HISTORY: Noncontributory. DIAGNOSTICS: Results from both lumbar spine imaging: Acute L1 depression fracture. Lower extremity CT radiographic: Occult fracture in the right knee with lipohemarthrosis. Chest x-ray, no acute findings. ASSESSMENT AND PLAN: Patient with occult fracture of the right knee being treated by orthopedics. We will continue to follow along. Knee immobilizer remains in place. Activity restrictions per Orthopedics. Continue pain management with oxycodone with supplemental IV morphine as needed for compression fracture of L1 lumbar vertebrae. Thank you for the consult. We have discussed with the patient risks and benefits of kyphoplasty and we will plan to do so on an outpatient basis this week. She will need to be off her Lovenox for 36 hours prior to confirmed date of the operating procedure. We have discussed risks and benefits. We will order MRI to review chronicity of compression fracture. Patient is aware of the risks and benefits of the procedure. We will order a coagulation panel. I have reviewed her CBC and her UA. The plan is for discharge to home health. Thank you for the consult and we will be in contact about scheduling outpatient kyphoplasty. DICTATING PHYSICIAN: NATALIE LINCOLN M.D. [id number] PHY#: [id number] ID: [id number] JOB#: [id number] ACCT: [id number] cc:NATALIE LINCOLN M.D. > MTDD
--- NOTE | 2017-05-09 16:30 | PDOC PROGRESS REPORT ---
Subjective Progress Note for:: 05/09/17 Subjective:: Patient seen on rounds. She was getting an MRI earlier on rounds. MRI shows no significant problems other than [id number]. She continues to have back and right knee pain, but it is better than the last 2 days .Discussed the need for her to get out of bed with physical therapy and increase her activity. She states she will attempt this today. She denies any shortness of breath, or dyspnea. She denies any nausea, vomiting or abdominal pain. She has no other complaints at the present time. Remaining review of systems are negative. Physical Exam Vital Signs: Temp Pulse Resp BP Pulse Ox 98.4 F 77 18 129/66 H 96 05/09/17 11:44 05/09/17 11:44 05/09/17 11:44 05/09/17 11:44 05/09/17 11:44 Intake & Output 05/08/17 05/09/17 05/10/17 06:59 06:59 06:59 Intake Total 1010 1508 Output Total 2600 4200 Balance -1590 -2692 Weight 84.3 kg 86.5 kg General appearance: PRESENT: no acute distress, well-developed, well-nourished Head exam: PRESENT: atraumatic, normocephalic Eye exam: PRESENT: conjunctiva pink, EOMI, PERRLA. ABSENT: scleral icterus Ear exam: PRESENT: normal external ear exam Mouth exam: PRESENT: moist, tongue midline Neck exam: ABSENT: carotid bruit, JVD, lymphadenopathy, thyromegaly Respiratory exam: PRESENT: clear to auscultation ann. ABSENT: rales, rhonchi, wheezes Cardiovascular exam: PRESENT: RRR. ABSENT: diastolic murmur, rubs, systolic murmur Pulses: PRESENT: normal dorsalis pedis pul Vascular exam: PRESENT: normal capillary refill GI/Abdominal exam: PRESENT: normal bowel sounds, soft. ABSENT: distended, guarding, mass, organolmegaly, rebound, tenderness Rectal exam: PRESENT: deferred Extremities exam: PRESENT: full ROM, joint swelling - right knee, tenderness. ABSENT: calf tenderness, clubbing, pedal edema Musculoskeletal exam: PRESENT: normal inspection, tenderness, other - immobilizer to right knee Neurological exam: PRESENT: alert, awake, oriented to person, oriented to place , oriented to time, oriented to situation, CN II-XII grossly intact. ABSENT: motor sensory deficit Psychiatric exam: PRESENT: appropriate affect, normal mood. ABSENT: homicidal ideation, suicidal ideation Skin exam: PRESENT: dry, intact, warm. ABSENT: cyanosis, rash Results Laboratory Results: 05/06/17 21:22 Impressions: Knee X-Ray 05/06/17 13:15 IMPRESSION: Lipoma hemarthrosis from fracture. A displaced fracture is not identified. Patient will undergo CT of the right knee shortly. Lumbar Spine X-Ray 05/06/17 13:15 IMPRESSION: Acute L1 vertebral body compression deformity with less than 25% overall loss of height. Chest X-Ray 05/06/17 13:18 IMPRESSION: No acute findings Lower Extremity CT 05/06/17 14:20 IMPRESSION: Radiographically occult fracture of the right knee with a lipohemarthrosis Lumbar Spine CT 05/06/17 14:20 IMPRESSION: Acute L1 vertebral body compression deformity with less than 25% overall loss of height. Lumbar Spine MRI 05/08/17 00:00 IMPRESSION: Acute L1 compression fracture with approximately 25% loss of height , no retropulsion, and no extension to the pedicles. Amenable to kyphoplasty. Mild spinal stenosis L4-5. Assessment & Plan - Diagnosis (1) Compression fracture of L1 lumbar vertebra Qualifiers: Encounter type: initial encounter Fracture type: closed Qualified Code(s): S32.010A - Wedge compression fracture of first lumbar vertebra, initial encounter for closed fracture Is this a current diagnosis for this admission?: YesPlan: She has continued need for IV opiod pain medication due to severe low back pain. She is scheduled for kyphoplasty with Dr Hale on Tuesday. She will participate with physical therapy today (2) Hyponatremia Is this a current diagnosis for this admission?: YesPlan: Likely due to poor oral intake secondary to pain. Patient encouraged to increase hydration. Will monitor in the am (3) Knee fracture, right Is this a current diagnosis for this admission?: YesPlan: Immobilizer, ortho consult. PT consult (4) Anxiety Is this a current diagnosis for this admission?: YesPlan: Continue home medications (5) Depression Qualifiers: Depression Type: unspecified Qualified Code(s): F32.9 - Major depressive disorder, single episode, unspecified Is this a current diagnosis for this admission?: YesPlan: Continue home medications (6) Breast cancer Qualifiers: Breast location: unspecified site of breast Laterality: left Is this a current diagnosis for this admission?: YesPlan: Patient is status post mastectomy in Oct. Has great deal of anxiety using left arm for fear of developing lymphedema. Patient reassured normal use and function will not cause that problem - Time Time Spent with patient: 25-34 minutes Critical Time spent with patient: 15-24 minutes Medications reviewed and adjusted accordingly: Yes Anticipated discharge: Home with Homehealth, Acute Rehab
[2017-05-09] MEDS: ARIPIPRAZOLE 5 MG TABLET PO SCH (21:57)
[2017-05-09] MEDS: TOPIRAMATE 100 MG TABLET PO SCH (21:57)
[2017-05-10] MEDS: OXYCODONE HCL IR 5 MG TABLET PO PRN ×3 (04:39→21:27)
[2017-05-10 06:40] LABS: ANION GAP 13 (5-19); BLOOD UREA NITROGEN 12 mg/dL (7-20); CALCIUM 9.7 mg/dL (8.4-10.2); CARBON DIOXIDE 20 mmol/L (22-30); CHLORIDE 105 mmol/L (98-107); CREATININE RESULT 0.36 mg/dL (0.52-1.25); GLUCOSE 108 mg/dL (75-110); POTASSIUM 3.8 mmol/L (3.6-5.0); SODIUM 137.8 mmol/L (137-145)
[2017-05-10] MEDS: LIDOCAINE 5% (700 MG) TRANSDERMAL ADH..PATCH TP SCH (10:48)
[2017-05-10] MEDS: FLUOXETINE HCL 20 MG CAPSULE PO SCH (10:48)
--- NOTE | 2017-05-10 15:49 | PDOC PROGRESS REPORT ---
Subjective Progress Note for:: 05/10/17 Subjective:: Patient seen on rounds. She is resting comfortably in bed. She continues to have back and right knee pain, but it is better than the last few days .Discussed the need for her to get out of bed with physical therapy and increase her activity. She states she was able to get out of bed and sit in the chair for breakfast. She denies any shortness of breath, or dyspnea. She denies any nausea, vomiting or abdominal pain. She has no other complaints at the present time. Remaining review of systems are negative. Physical Exam Vital Signs: Temp Pulse Resp BP Pulse Ox 98.2 F 71 16 136/75 H 98 05/10/17 11:34 05/10/17 11:34 05/10/17 11:34 05/10/17 11:34 05/10/17 11:34 Intake & Output 05/09/17 05/10/17 05/11/17 06:59 06:59 06:59 Intake Total 540 Output Total 550 Balance -10 Weight 83.1 kg General appearance: PRESENT: no acute distress, well-developed, well-nourished Head exam: PRESENT: atraumatic, normocephalic Eye exam: PRESENT: conjunctiva pink, EOMI, PERRLA. ABSENT: scleral icterus Ear exam: PRESENT: normal external ear exam Mouth exam: PRESENT: moist, tongue midline Neck exam: ABSENT: carotid bruit, JVD, lymphadenopathy, thyromegaly Respiratory exam: PRESENT: clear to auscultation ann. ABSENT: rales, rhonchi, wheezes Cardiovascular exam: PRESENT: RRR. ABSENT: diastolic murmur, rubs, systolic murmur Pulses: PRESENT: normal dorsalis pedis pul Vascular exam: PRESENT: normal capillary refill GI/Abdominal exam: PRESENT: normal bowel sounds, soft. ABSENT: distended, guarding, mass, organolmegaly, rebound, tenderness Rectal exam: PRESENT: deferred Extremities exam: PRESENT: tenderness, other - right knee in immobilizer Musculoskeletal exam: PRESENT: ambulatory, tenderness - right knee, swelling has resolved Neurological exam: PRESENT: alert, awake, oriented to person, oriented to place , oriented to time, oriented to situation, CN II-XII grossly intact. ABSENT: motor sensory deficit Psychiatric exam: PRESENT: appropriate affect, normal mood. ABSENT: homicidal ideation, suicidal ideation Skin exam: PRESENT: dry, intact, warm. ABSENT: cyanosis, rash Results Laboratory Results: 05/10/17 05:39 05/10/17 05:39 Sodium 137.8 Potassium 3.8 Chloride 105 Carbon Dioxide 20 L Anion Gap 13 BUN 12 Creatinine 0.36 L Est GFR ( Amer) > 60 Est GFR (Non-Af Amer) > 60 Glucose 108 Calcium 9.7 Impressions: Knee X-Ray 05/06/17 13:15 IMPRESSION: Lipoma hemarthrosis from fracture. A displaced fracture is not identified. Patient will undergo CT of the right knee shortly. Lumbar Spine X-Ray 05/06/17 13:15 IMPRESSION: Acute L1 vertebral body compression deformity with less than 25% overall loss of height. Chest X-Ray 05/06/17 13:18 IMPRESSION: No acute findings Lower Extremity CT 05/06/17 14:20 IMPRESSION: Radiographically occult fracture of the right knee with a lipohemarthrosis Lumbar Spine CT 05/06/17 14:20 IMPRESSION: Acute L1 vertebral body compression deformity with less than 25% overall loss of height. Lumbar Spine MRI 05/08/17 00:00 IMPRESSION: Acute L1 compression fracture with approximately 25% loss of height , no retropulsion, and no extension to the pedicles. Amenable to kyphoplasty. Mild spinal stenosis L4-5. Assessment & Plan - Diagnosis (1) Compression fracture of L1 lumbar vertebra Qualifiers: Encounter type: initial encounter Fracture type: closed Qualified Code(s): S32.010A - Wedge compression fracture of first lumbar vertebra, initial encounter for closed fracture Is this a current diagnosis for this admission?: YesPlan: She has continued need for IV opiod pain medication due to severe low back pain. She is scheduled for kyphoplasty with Dr Hale on Tuesday. She will participate with physical therapy today (2) Hyponatremia Is this a current diagnosis for this admission?: YesPlan: Likely due to poor oral intake secondary to pain. Patient encouraged to increase hydration. Will monitor in the am (3) Knee fracture, right Is this a current diagnosis for this admission?: YesPlan: Immobilizer, ortho consult. PT consult (4) Anxiety Is this a current diagnosis for this admission?: YesPlan: Continue home medications (5) Depression Qualifiers: Depression Type: unspecified Qualified Code(s): F32.9 - Major depressive disorder, single episode, unspecified Is this a current diagnosis for this admission?: YesPlan: Continue home medications (6) Breast cancer Qualifiers: Breast location: unspecified site of breast Laterality: left Is this a current diagnosis for this admission?: YesPlan: Patient is status post mastectomy in Oct. Has great deal of anxiety using left arm for fear of developing lymphedema. Patient reassured normal use and function will not cause that problem - Time Time Spent with patient: 25-34 minutes Critical Time spent with patient: 15-24 minutes Medications reviewed and adjusted accordingly: Yes Anticipated discharge: Acute Rehab Within: when bed available
[2017-05-10] MEDS: ARIPIPRAZOLE 5 MG TABLET PO SCH (21:26)
[2017-05-10] MEDS: TOPIRAMATE 100 MG TABLET PO SCH (21:27)
[2017-05-11] MEDS ORDERED: LIDOCAINE 1% INJ-PF (10 MG/ML) 30 ML SDV ONE (10:33)
[2017-05-11] MEDS ORDERED: BACITRACIN ZINC OINTMENT 15 GM ONE (10:33)
[2017-05-11] MEDS: LIDOCAINE 5% (700 MG) TRANSDERMAL ADH..PATCH TP SCH (10:35)
[2017-05-11] MEDS: FLUOXETINE HCL 20 MG CAPSULE PO SCH (10:35)
[2017-05-11] MEDS ORDERED: MIDAZOLAM 2 MG/2 ML INJ ONE (11:27)
[2017-05-11] MEDS ORDERED: FENTANYL CITRATE INJ/PF 100 MCG/2 ML AMPUL ONE (11:27)
[2017-05-11] MEDS ORDERED: PROPOFOL INJ 200 MG/20 ML VIAL IV ONE (11:28)
[2017-05-11 12:20] LABS: APPEARANCE,URINE CLOUDY; BILIRUBIN,URINE NEGATIVE (NEGATIVE); GLUCOSE, URINE NEGATIVE (NEGATIVE); KETONES,URINE NEGATIVE (NEGATIVE); LEUKOCYTE ESTERASE,URINE LARGE (NEGATIVE); NITRITE,URINE NEGATIVE (NEGATIVE); PROTEIN,URINE >=500 mg/dL (NEGATIVE)
[2017-05-11] MEDS: ALPRAZOLAM 0.5 MG TABLET PO PRN (16:03)
--- NOTE | 2017-05-11 17:08 | PDOC PROGRESS REPORT ---
Subjective Progress Note for:: 05/11/17 Subjective:: Patient seen on rounds. She is resting comfortably in bed. She continues to have back and right knee pain, but it is better than the last few days .Discussed the need for her to get out of bed with physical therapy and increase her activity. She states she was able to get out of bed and sit in the chair for breakfast. She denies any shortness of breath, or dyspnea. She denies any nausea, vomiting or abdominal pain. She has no other complaints at the present time. Remaining review of systems are negative. Physical Exam Vital Signs: Temp Pulse Resp BP Pulse Ox 97.4 F 77 20 135/81 H 95 05/11/17 16:03 05/11/17 16:03 05/11/17 16:03 05/11/17 16:03 05/11/17 16:03 Intake & Output 05/10/17 05/11/17 05/12/17 06:59 06:59 06:59 Intake Total 540 2790 Output Total 550 Balance -10 2790 Weight 83.1 kg 80.8 kg General appearance: PRESENT: no acute distress, well-developed, well-nourished Head exam: PRESENT: atraumatic, normocephalic Eye exam: PRESENT: conjunctiva pink, EOMI, PERRLA. ABSENT: scleral icterus Ear exam: PRESENT: normal external ear exam Mouth exam: PRESENT: moist, tongue midline Neck exam: ABSENT: carotid bruit, JVD, lymphadenopathy, thyromegaly Respiratory exam: PRESENT: clear to auscultation ann. ABSENT: rales, rhonchi, wheezes Cardiovascular exam: PRESENT: RRR. ABSENT: diastolic murmur, rubs, systolic murmur Pulses: PRESENT: normal dorsalis pedis pul Vascular exam: PRESENT: normal capillary refill Rectal exam: PRESENT: deferred Extremities exam: PRESENT: full ROM, tenderness, +1 edema Musculoskeletal exam: PRESENT: ambulatory, tenderness - right knee Neurological exam: PRESENT: alert, awake, oriented to person, oriented to place , oriented to time, oriented to situation, CN II-XII grossly intact. ABSENT: motor sensory deficit Psychiatric exam: PRESENT: appropriate affect, normal mood. ABSENT: homicidal ideation, suicidal ideation Skin exam: PRESENT: dry, intact, warm. ABSENT: cyanosis, rash Results Laboratory Results: 05/10/17 05:39 05/11/17 11:48 Urine Color YELLOW Urine Appearance CLOUDY Urine pH 6.0 Ur Specific [place] 1.020 Urine Protein >=500 H Urine Glucose (UA) NEGATIVE Urine Ketones NEGATIVE Urine Blood MODERATE H Urine Nitrite NEGATIVE Ur Leukocyte Esterase LARGE H Urine WBC (Auto) >182 Urine RBC (Auto) >182 Impressions: Knee X-Ray 05/06/17 13:15 IMPRESSION: Lipoma hemarthrosis from fracture. A displaced fracture is not identified. Patient will undergo CT of the right knee shortly. Lumbar Spine X-Ray 05/06/17 13:15 IMPRESSION: Acute L1 vertebral body compression deformity with less than 25% overall loss of height. Chest X-Ray 05/06/17 13:18 IMPRESSION: No acute findings Lower Extremity CT 05/06/17 14:20 IMPRESSION: Radiographically occult fracture of the right knee with a lipohemarthrosis Lumbar Spine CT 05/06/17 14:20 IMPRESSION: Acute L1 vertebral body compression deformity with less than 25% overall loss of height. Lumbar Spine MRI 05/08/17 00:00 IMPRESSION: Acute L1 compression fracture with approximately 25% loss of height , no retropulsion, and no extension to the pedicles. Amenable to kyphoplasty. Mild spinal stenosis L4-5. Assessment & Plan - Diagnosis (1) Compression fracture of L1 lumbar vertebra Qualifiers: Encounter type: initial encounter Fracture type: closed Qualified Code(s): S32.010A - Wedge compression fracture of first lumbar vertebra, initial encounter for closed fracture Is this a current diagnosis for this admission?: YesPlan: She has continued need for IV opiod pain medication due to severe low back pain. She is scheduled for kyphoplasty with Dr Alexia soler today. She will participate with physical therapy today (2) Hyponatremia Is this a current diagnosis for this admission?: YesPlan: Likely due to poor oral intake secondary to pain. Patient encouraged to increase hydration. Will monitor in the am (3) Knee fracture, right Is this a current diagnosis for this admission?: YesPlan: Immobilizer, ortho consult. PT consult (4) Anxiety Is this a current diagnosis for this admission?: YesPlan: Continue home medications (5) Depression Qualifiers: Depression Type: unspecified Qualified Code(s): F32.9 - Major depressive disorder, single episode, unspecified Is this a current diagnosis for this admission?: YesPlan: Continue home medications (6) Breast cancer Qualifiers: Breast location: unspecified site of breast Laterality: left Is this a current diagnosis for this admission?: YesPlan: Patient is status post mastectomy in Oct. Has great deal of anxiety using left arm for fear of developing lymphedema. Patient reassured normal use and function will not cause that problem - Time Time Spent with patient: 25-34 minutes Critical Time spent with patient: 15-24 minutes Medications reviewed and adjusted accordingly: Yes Anticipated discharge: Home with Homehealth, Acute Rehab Within: within 24 hours
[2017-05-11] MEDS: CIPROFLOXACIN 400 MG/D5W RTU 400 MG/200 ML RTUPB IV SCH (19:18)
[2017-05-11] MEDS: TOPIRAMATE 100 MG TABLET PO SCH (21:18)
[2017-05-11] MEDS: ARIPIPRAZOLE 5 MG TABLET PO SCH (21:18)
[2017-05-11] MEDS: PHENAZOPYRIDINE HCL 200 MG TABLET PO SCH (21:19)
[2017-05-11] MEDS ORDERED: CIPROFLOXACIN HCL 500 MG TABLET PO SCH (22:00)
[2017-05-11] MEDS: OXYCODONE HCL IR 5 MG TABLET PO PRN (22:12)
[2017-05-12] MEDS: PHENAZOPYRIDINE HCL 200 MG TABLET PO SCH ×3 (05:22→21:50)
[2017-05-12] MEDS: CIPROFLOXACIN 400 MG/D5W RTU 400 MG/200 ML RTUPB IV SCH ×2 (05:22→18:34)
[2017-05-12] MEDS: OXYCODONE HCL IR 5 MG TABLET PO PRN ×2 (09:42→21:51)
[2017-05-12] MEDS: FLUOXETINE HCL 20 MG CAPSULE PO SCH (09:43)
[2017-05-12] MEDS: LIDOCAINE 5% (700 MG) TRANSDERMAL ADH..PATCH TP SCH (09:43)
[2017-05-12 10:54] LABS: APPEARANCE,URINE CLEAR; BILIRUBIN,URINE NEGATIVE (NEGATIVE); GLUCOSE, URINE NEGATIVE (NEGATIVE); KETONES,URINE NEGATIVE (NEGATIVE); LEUKOCYTE ESTERASE,URINE SMALL (NEGATIVE); NITRITE,URINE POSITIVE (NEGATIVE); PROTEIN,URINE NEGATIVE (NEGATIVE); URINE SPECIFIC GRAVITY 1.008
[2017-05-12] MEDS ORDERED: MAGNESIUM HYDROXIDE SUSP 30 ML UDCUP PO PRN (13:28)
[2017-05-12] MEDS ORDERED: MAG HYDROX/AL HYDROX/SIMETH SUSP 30 ML UDCUP PO PRN (13:30)
--- NOTE | 2017-05-12 15:56 | PDOC PROGRESS REPORT ---
Subjective Progress Note for:: 05/12/17 Subjective:: Patient seen on rounds. She is resting comfortably in bedside chair. She continues to have back and right knee pain, but it is better than the last few days .Discussed the need for her to get out of bed with physical therapy and increase her activity. Her kyphoplasty was postponed due to patient developing a uti. It is now scheduled for tomorrow She denies any shortness of breath, or dyspnea. She denies any nausea, vomiting or abdominal pain. She has no other complaints at the present time. Remaining review of systems are negative. Physical Exam Vital Signs: Temp Pulse Resp BP Pulse Ox 98.2 F 82 16 124/75 95 05/12/17 11:22 05/12/17 14:00 05/12/17 11:22 05/12/17 11:22 05/12/17 11:22 Intake & Output 05/11/17 05/12/17 05/13/17 06:59 06:59 06:59 Intake Total 2790 2137 Output Total 1500 Balance 2790 637 Weight 80.8 kg 80.3 kg General appearance: PRESENT: no acute distress, well-developed, well-nourished Head exam: PRESENT: atraumatic, normocephalic Eye exam: PRESENT: conjunctiva pink, EOMI, PERRLA. ABSENT: scleral icterus Mouth exam: PRESENT: moist, tongue midline Neck exam: ABSENT: carotid bruit, JVD, lymphadenopathy, thyromegaly Respiratory exam: PRESENT: clear to auscultation ann. ABSENT: rales, rhonchi, wheezes Cardiovascular exam: PRESENT: RRR. ABSENT: diastolic murmur, rubs, systolic murmur Pulses: PRESENT: normal dorsalis pedis pul Vascular exam: PRESENT: normal capillary refill GI/Abdominal exam: PRESENT: normal bowel sounds, soft. ABSENT: distended, guarding, mass, organolmegaly, rebound, tenderness Rectal exam: PRESENT: deferred Extremities exam: PRESENT: full ROM. ABSENT: calf tenderness, clubbing, pedal edema Musculoskeletal exam: PRESENT: ambulatory, full ROM - right patellla, tenderness Neurological exam: PRESENT: alert, awake, oriented to person, oriented to place , oriented to time, oriented to situation, CN II-XII grossly intact. ABSENT: motor sensory deficit Psychiatric exam: PRESENT: appropriate affect, normal mood. ABSENT: homicidal ideation, suicidal ideation Skin exam: PRESENT: dry, intact, warm. ABSENT: cyanosis, rash Results Laboratory Results: 05/10/17 05:39 05/12/17 10:20 Urine Color ORANGE Urine Appearance CLEAR Urine pH 6.0 Ur Specific [place] 1.008 Urine Protein NEGATIVE Urine Glucose (UA) NEGATIVE Urine Ketones NEGATIVE Urine Blood NEGATIVE Urine Nitrite POSITIVE H Ur Leukocyte Esterase SMALL H Urine WBC (Auto) 36 Urine RBC (Auto) 1 Impressions: Knee X-Ray 05/06/17 13:15 IMPRESSION: Lipoma hemarthrosis from fracture. A displaced fracture is not identified. Patient will undergo CT of the right knee shortly. Lumbar Spine X-Ray 05/06/17 13:15 IMPRESSION: Acute L1 vertebral body compression deformity with less than 25% overall loss of height. Chest X-Ray 05/06/17 13:18 IMPRESSION: No acute findings Lower Extremity CT 05/06/17 14:20 IMPRESSION: Radiographically occult fracture of the right knee with a lipohemarthrosis Lumbar Spine CT 05/06/17 14:20 IMPRESSION: Acute L1 vertebral body compression deformity with less than 25% overall loss of height. Lumbar Spine MRI 05/08/17 00:00 IMPRESSION: Acute L1 compression fracture with approximately 25% loss of height , no retropulsion, and no extension to the pedicles. Amenable to kyphoplasty. Mild spinal stenosis L4-5. Assessment & Plan - Diagnosis (1) Compression fracture of L1 lumbar vertebra Qualifiers: Encounter type: initial encounter Fracture type: closed Qualified Code(s): S32.010A - Wedge compression fracture of first lumbar vertebra, initial encounter for closed fracture Is this a current diagnosis for this admission?: YesPlan: She has continued need for IV opiod pain medication due to severe low back pain. She is scheduled for kyphoplasty with Dr Alexia soler today. She will participate with physical therapy today (2) Hyponatremia Is this a current diagnosis for this admission?: YesPlan: Likely due to poor oral intake secondary to pain. Patient encouraged to increase hydration. Will monitor in the am (3) Knee fracture, right Is this a current diagnosis for this admission?: YesPlan: Immobilizer, ortho consult. PT consult (4) Anxiety Is this a current diagnosis for this admission?: YesPlan: Continue home medications (5) Depression Qualifiers: Depression Type: unspecified Qualified Code(s): F32.9 - Major depressive disorder, single episode, unspecified Is this a current diagnosis for this admission?: YesPlan: Continue home medications (6) Breast cancer Qualifiers: Breast location: unspecified site of breast Laterality: left Is this a current diagnosis for this admission?: YesPlan: Patient is status post mastectomy in Oct. Has great deal of anxiety using left arm for fear of developing lymphedema. Patient reassured normal use and function will not cause that problem - Time Time Spent with patient: 25-34 minutes Critical Time spent with patient: 15-24 minutes Medications reviewed and adjusted accordingly: Yes Anticipated discharge: Home with Homehealth, Acute Rehab
[2017-05-12] MEDS: ALPRAZOLAM 0.5 MG TABLET PO PRN (16:09)
[2017-05-12] MEDS: TOPIRAMATE 100 MG TABLET PO SCH (21:50)
[2017-05-12] MEDS: ARIPIPRAZOLE 5 MG TABLET PO SCH (21:50)
[2017-05-13 04:58] LABS: ABSOLUTE EOSINOPHILS # (AUTO) 0.1 10^3/uL (0.0-0.6); ABSOLUTE MONOCYTES (AUTO) 0.4 10^3/uL (0.1-1.4); ABSOLUTE NEUT (AUTO) 2.1 10^3/uL (1.7-8.2); EOSINOPHILS % (AUTO) 2.8 % (0-6); HEMATOCRIT 39.3 % (36.0-47.0); HEMOGLOBIN 12.7 g/dL (12.0-15.5); HGB HCT DIFFERENCE -1.2; LYMPHOCYTES % (AUTO) 27.4 % (13-45); MEAN CORPUSCULAR HEMOGLOBIN 29.6 pg (27.0-33.4); MEAN CORPUSCULAR HGB CONC 32.3 g/dL (32.0-36.0); MEAN CORPUSCULAR VOLUME 92 fl (80-97); MONOCYTES % (AUTO) 12.2 % (3-13); RED CELL DISTRIBUTION WIDTH 12.9 % (11.5-14.0); SEGMENTED NEUTROPHILS % (AUTO) 56.6 % (42-78); WHITE BLOOD COUNT 3.6 10^3/uL (4.0-10.5)
[2017-05-13 05:04] LABS: ANION GAP 10 (5-19); BLOOD UREA NITROGEN 16 mg/dL (7-20); CALCIUM 9.7 mg/dL (8.4-10.2); CARBON DIOXIDE 21 mmol/L (22-30); CHLORIDE 108 mmol/L (98-107); CREATININE RESULT 0.47 mg/dL (0.52-1.25); GLUCOSE 92 mg/dL (75-110); POTASSIUM 3.9 mmol/L (3.6-5.0); SODIUM 139.2 mmol/L (137-145)
[2017-05-13] MEDS: CIPROFLOXACIN 400 MG/D5W RTU 400 MG/200 ML RTUPB IV SCH ×2 (05:15→17:20)
[2017-05-13] MEDS: PHENAZOPYRIDINE HCL 200 MG TABLET PO SCH ×3 (05:15→21:10)
[2017-05-13] MEDS ORDERED: CEFAZOLIN INJ 1 GM VIAL ONE (07:38)
[2017-05-13] MEDS ORDERED: MIDAZOLAM 2 MG/2 ML INJ ONE (08:21)
[2017-05-13] MEDS ORDERED: KETAMINE HCL INJ 500 MG/10 ML VIAL ONE (08:21)
[2017-05-13] MEDS ORDERED: MORPHINE SULFATE 10 MG/ML INJ ONE (08:22)
[2017-05-13] MEDS ORDERED: PROPOFOL INJ 200 MG/20 ML VIAL IV ONE (08:22)
[2017-05-13] MEDS ORDERED: DEXMEDETOMIDINE INJ 80 MCG/20 ML VIAL IV ONE (08:22)
[2017-05-13] MEDS ORDERED: IBUPROFEN INJ 800 MG/8 ML VIAL IV ONE (08:23)
[2017-05-13] MEDS ORDERED: LIDOCAINE 1% INJ-PF (10 MG/ML) 30 ML SDV ONE (08:23)
[2017-05-13] MEDS ORDERED: SODIUM BICARBONATE 8.4% INJ 50 MEQ/50 ML DISP.SYRIN ONE (08:57)
--- NOTE | 2017-05-13 09:42 | OPERATIVE REPORT E ---
Operative Report NAME: TANA SILVA : 1955 AGE: 62Y DATE OF SURGERY: 05/13/2017 ROOM: 528 PREOPERATIVE DIAGNOSIS: L1 COMPRESSION FRACTURE WITH INTRACTABLE PAIN. POSTOPERATIVE DIAGNOSIS: L1 COMPRESSION FRACTURE WITH INTRACTABLE PAIN. OPERATION: L1 balloon kyphoplasty using biparapedicular approach under fluoroscopic guidance. SURGEON: JLOLY GAMEZ M.D. ANESTHESIA: MAC. COMPLICATIONS: None. BLOOD LOSS: 10 mL. INDICATIONS: Intractable pain, failing to respond to conservative treatment. PROCEDURE: After obtaining informed consent, advising the patient of the risks and benefits including serious neurological injury, bleeding and infection, the patient was taken to the operating room. She was placed comfortably in the prone position. Comfort was assessed visually and verbally and MAC anesthesia as administered. She was then prepped with chlorhexidine and allowed 3 minutes to dry prior to draping. It should be noted that C-Arm fluoro was in place. After draping, fluoro views were taken to confirm the location of the L1 fracture. The pedicles were identified and beginning on the right side, skin wheal with 1% lidocaine was performed, followed by subcutaneous tissue and periosteal tissue with a spinal needle. A small incision was then made with an 11 blade knife. The Express trocar was then advanced under fluoroscopic guidance to penetrate into the pedicle and vertebral body, but not prior to passing into the vertebral body versus the medial border of the pedicle. The drill was placed and removed. The balloon was placed and inflated. This procedure was then performed on the left side as well. Once both balloons were suitably inflated given suitable cavities for filling, the cement mixture was created. When this was of suitable consistency, it was injected for a total of 3.2 mL per side. No evidence of embolization, extravasation or spread within the disk or retrograde into the spinal canal were noted. The cement was allowed to harden with 6 trocars into the Stylettes. All instrumentation was then removed. Sterile dressings were placed, followed by sponge Tegaderms. The patient was then taken to the PACU for further postoperative care and monitoring. DICTATING PHYSICIAN: JOLLY GAMEZ M.D. [id number] PHY#: [id number] ID: [id number] JOB#: [id number] ACCT: [id number] cc:JOLLY GAMEZ M.D. >
[2017-05-13] MEDS ORDERED: PROMETHAZINE HCL INJ 25 MG/1 ML VIAL ONE (09:47)
--- NOTE | 2017-05-13 10:12 | RADIOLOGY REPORT (SQ) ---
EXAM DESCRIPTION: L SPINE 2 VIEWS; NO CHG FLUORO COMPLETED DATE/TIME: 05/13/2017 10:01 am REASON FOR STUDY: L1 KYPHOPLASTY COMPARISON: Lumbar MRI 05/08/2017 FLUOROSCOPY TIME: 2 minutes Multiple cine fluoro images saved to PACS. TECHNIQUE: Intra-operative images acquired during surgical procedure to evaluate progress. NUMBER OF IMAGES: Cine fluoroscopic images. LIMITATIONS: None. FINDINGS: Intra procedural imaging and fluoro. Please see the operative report for further details IMPRESSION: Intra procedural imaging and fluoro COMMENT: Quality ID [id number]: Final reports for procedures using fluoroscopy that document radiation exp osure indices, or exposure time and number of fluorographic images (if radiation exposure indices are not available) Please consult full operative report of the attending physician for description of the procedure. TECHNICAL DOCUMENTATION: JOB ID: [id number] [employer]- All Rights Reserved
[2017-05-13] MEDS: FLUOXETINE HCL 20 MG CAPSULE PO SCH (10:59)
[2017-05-13] MEDS: LIDOCAINE 5% (700 MG) TRANSDERMAL ADH..PATCH TP SCH (11:02)
[2017-05-13] MEDS ORDERED: LIDOCAINE 2% INJ-PF (20 MG/ML) 10 ML AMPUL ONE (11:41)
[2017-05-13] MEDS ORDERED: GLYCOPYRROLATE INJ 0.4 MG/2 ML VIAL ONE (11:41)
[2017-05-13] MEDS ORDERED: ONDANSETRON HCL INJ/PF 4 MG/2 ML SDV ONE (11:41)
[2017-05-13] MEDS ORDERED: METOCLOPRAMIDE HCL INJ/PF 10 MG/2 ML SDV ONE (11:41)
--- NOTE | 2017-05-13 16:06 | PDOC PROGRESS REPORT ---
Subjective Progress Note for:: 05/13/17 Subjective:: Patient seen on rounds. She is resting comfortably in bedside chair. She had her kyphoplasty this morning and her back pain is completely gone She feels she can now go home with home physical therapy tomorrow. She denies any shortness of breath, or dyspnea. She denies any nausea, vomiting or abdominal pain. She has no other complaints at the present time. Remaining review of systems are negative. Physical Exam Vital Signs: Temp Pulse Resp BP Pulse Ox 97.5 F 72 16 115/62 95 05/13/17 14:59 05/13/17 14:59 05/13/17 14:59 05/13/17 14:59 05/13/17 14:59 Intake & Output 05/12/17 05/13/17 05/14/17 06:59 06:59 06:59 Intake Total 2137 3822 6408 Output Total 1500 2275 2.5 Balance 637 1547 6405.5 Weight 80.3 kg 79.8 kg General appearance: PRESENT: no acute distress, well-developed, well-nourished Head exam: PRESENT: atraumatic, normocephalic Eye exam: PRESENT: conjunctiva pink, EOMI, PERRLA. ABSENT: scleral icterus Ear exam: PRESENT: normal external ear exam Mouth exam: PRESENT: moist, tongue midline Neck exam: ABSENT: carotid bruit, JVD, lymphadenopathy, thyromegaly Respiratory exam: PRESENT: clear to auscultation ann, symmetrical, unlabored. ABSENT: rales, rhonchi, wheezes Cardiovascular exam: PRESENT: RRR. ABSENT: diastolic murmur, rubs, systolic murmur Pulses: PRESENT: normal dorsalis pedis pul Vascular exam: PRESENT: normal capillary refill GI/Abdominal exam: PRESENT: normal bowel sounds, soft. ABSENT: distended, guarding, mass, organolmegaly, rebound, tenderness Rectal exam: PRESENT: deferred Extremities exam: PRESENT: other - Right leg in an immobilizer Musculoskeletal exam: PRESENT: ambulatory, tenderness Neurological exam: PRESENT: alert, awake, oriented to person, oriented to place , oriented to time, oriented to situation, CN II-XII grossly intact. ABSENT: motor sensory deficit Psychiatric exam: PRESENT: appropriate affect, normal mood. ABSENT: homicidal ideation, suicidal ideation Skin exam: PRESENT: dry, intact, warm, other - dressing to back dry and intacte. ABSENT: cyanosis, rash Results Laboratory Results: 05/13/17 04:06 05/13/17 04:06 05/13/17 05/13/17 04:06 04:06 WBC 3.6 L RBC 4.30 Hgb 12.7 Hct 39.3 MCV 92 MCH 29.6 MCHC 32.3 RDW 12.9 Plt Count 201 Seg Neutrophils % 56.6 Lymphocytes % 27.4 Monocytes % 12.2 Eosinophils % 2.8 Basophils % 1.0 Absolute Neutrophils 2.1 Absolute Lymphocytes 1.0 Absolute Monocytes 0.4 Absolute Eosinophils 0.1 Absolute Basophils 0.0 Sodium 139.2 Potassium 3.9 Chloride 108 H Carbon Dioxide 21 L Anion Gap 10 BUN 16 Creatinine 0.47 L Est GFR ( Amer) > 60 Est GFR (Non-Af Amer) > 60 Glucose 92 Calcium 9.7 Impressions: Knee X-Ray 05/06/17 13:15 IMPRESSION: Lipoma hemarthrosis from fracture. A displaced fracture is not identified. Patient will undergo CT of the right knee shortly. Chest X-Ray 05/06/17 13:18 IMPRESSION: No acute findings Lower Extremity CT 05/06/17 14:20 IMPRESSION: Radiographically occult fracture of the right knee with a lipohemarthrosis Lumbar Spine CT 05/06/17 14:20 IMPRESSION: Acute L1 vertebral body compression deformity with less than 25% overall loss of height. Lumbar Spine MRI 05/08/17 00:00 IMPRESSION: Acute L1 compression fracture with approximately 25% loss of height , no retropulsion, and no extension to the pedicles. Amenable to kyphoplasty. Mild spinal stenosis L4-5. Fluoroscopy 05/13/17 00:00 IMPRESSION: Intra procedural imaging and fluoro Lumbar Spine X-Ray 05/13/17 00:00 IMPRESSION: Intra procedural imaging and fluoro Assessment & Plan - Diagnosis (1) Compression fracture of L1 lumbar vertebra Qualifiers: Encounter type: initial encounter Fracture type: closed Qualified Code(s): S32.010A - Wedge compression fracture of first lumbar vertebra, initial encounter for closed fracture Is this a current diagnosis for this admission?: YesPlan: Kyphoplasty this morning has completely resolved her back pain (2) Hyponatremia Is this a current diagnosis for this admission?: YesPlan: Resolved (3) Knee fracture, right Is this a current diagnosis for this admission?: YesPlan: Immobilizer, ortho consult. PT consult (4) UTI (urinary tract infection) Qualifiers: Urinary tract infection type: catheter-associated UTI Is this a current diagnosis for this admission?: YesPlan: Cipro changed to po (5) Anxiety Is this a current diagnosis for this admission?: YesPlan: Continue home medications (6) Depression Qualifiers: Depression Type: unspecified Qualified Code(s): F32.9 - Major depressive disorder, single episode, unspecified Is this a current diagnosis for this admission?: YesPlan: Continue home medications (7) Breast cancer Qualifiers: Breast location: unspecified site of breast Laterality: left Is this a current diagnosis for this admission?: YesPlan: Patient is status post mastectomy in Oct. Has great deal of anxiety using left arm for fear of developing lymphedema. Patient reassured normal use and function will not cause that problem - Time Time Spent with patient: 25-34 minutes Critical Time spent with patient: 15-24 minutes Medications reviewed and adjusted accordingly: Yes Anticipated discharge: Home with Homehealth Within: within 24 hours
[2017-05-13] MEDS: TOPIRAMATE 100 MG TABLET PO SCH (21:10)
[2017-05-13] MEDS: CIPROFLOXACIN HCL 500 MG TABLET PO SCH (21:11)
[2017-05-13] MEDS: ARIPIPRAZOLE 5 MG TABLET PO SCH (21:11)
[2017-05-13] MEDS: ALPRAZOLAM 0.5 MG TABLET PO PRN (22:10)
[2017-05-14] MEDS: PHENAZOPYRIDINE HCL 200 MG TABLET PO SCH (05:48)
[2017-05-14] MEDS ORDERED: OXYCODONE HCL IR 5 MG TABLET PO ONE (06:45)
[2017-05-14 08:45] VITALS: BP 116/65
[2017-05-14] MEDS: FLUOXETINE HCL 20 MG CAPSULE PO SCH (09:18)
[2017-05-14] MEDS: CIPROFLOXACIN HCL 500 MG TABLET PO SCH (09:18)
[2017-05-14] MEDS: LIDOCAINE 5% (700 MG) TRANSDERMAL ADH..PATCH TP SCH (09:18)
[2017-05-14] MEDS: ENOXAPARIN SODIUM INJ 40 MG/0.4 ML DISP.SYRIN SUBCUT SCH (09:26)
--- NOTE | 2017-05-14 10:27 | PDOC DISCHARGE SUMMARY ---
General - Admit/Disc Date/PCP Admission Date/Primary Care Provider: 05/09/17 14:01 REGLA ORTIZ MD Discharge Date: 05/14/17 - Discharge Diagnosis (1) Compression fracture of L1 lumbar vertebra Is this a current diagnosis for this admission?: YesSummary: Status post kyphoplasty on 05/13 now pain free (2) Knee fracture, right Is this a current diagnosis for this admission?: YesSummary: Home physical therapy, knee immobilizer until cleared by ortho (3) UTI (urinary tract infection) Is this a current diagnosis for this admission?: YesSummary: Cipro 500 mg bid x 7 more days (4) Anxiety Is this a current diagnosis for this admission?: YesSummary: Continue home medications (5) Depression Is this a current diagnosis for this admission?: YesSummary: Continue home medications (6) Breast cancer Is this a current diagnosis for this admission?: Yes (7) Hyponatremia Is this a current diagnosis for this admission?: YesSummary: Resolved secondary to dehydration - Additional Information Resuscitation Status: Full Code Discharge Diet: Regular Discharge Activity: Activity As Tolerated, Balance Activity w/Rest Home Medications: Aripiprazole [Abilify 10 mg Tablet] 10 mg PO QHS 05/07/17 Ascorbic Acid [Vitamin C 500 mg Tablet] 500 mg PO DAILY 05/07/17 Ca Carbonate/Vitamin D3/Vit K [Citracal Soft Chew] 1 tab.chew PO DAILY 05/07/17 Cyanocobalamin (Vitamin B-12) [Nascobal] 1 each NS Q7D 05/07/17 Ergocalciferol (Vitamin D2) [Vitamin D2] 50,000 unit PO DAILY 05/07/17 Fluoxetine HCl [Prozac] 80 mg PO DAILY 05/07/17 Mv,Ca,Min/Iron Fum/FA/Vit K [Optisource Tablet Chewable] 1 tab PO DAILY Topiramate [Topamax] 200 mg PO QHS 05/07/17 Acetaminophen [Tylenol 325 mg Tablet] 650 mg PO Q4HP PRN tablet 05/14/17 Ciprofloxacin HCl [Cipro 500 mg Tablet] 500 mg PO Q12 #14 tablet 05/14/17 Hydrocodone/Acetaminophen [Queen 5-325 mg Tablet] 1 tab PO Q4HP PRN #20 tablet 05/14/17 History of Present Illness Patient complains of: Back pain and right lower extremity pain after fall from a ladder History of Present Illness: TANA SILVA is a 62 year old female with underlying arthritis, easy bruising, mild anxiety and depression without suicidal or homicidal ideation, who presents to the emergency room after falling off a step ladder from a height of 20 inches. ladder apparently was not fully locked. She fell backwards, landing on her butt on a hardwood floor. States she must have "twisted" her right leg during the fall. Denies hitting her head, loss of consciousness, or neck pain. Prior to the above event, no complaints, including nausea vomiting, fever or chills. She is status post previous repair of a right tibial plateau fracture. Initial attempts by the emergency room physician were to discharge the patient, but she simply has too much pain upon even sitting up in bed. Prior to my being called, emergency room physician did discuss the patient with on-call orthopedics; surgery not felt necessary. Right knee immobilizer has been applied by the emergency room physician. Hospital Course Hospital Course: Patient was admitted to the hospitalist service on telemetry. She was given IV morphine and hydrocodone for pain. Physical therapy was consulted for mobilization. Patient was very slow to progress because of severe back pain. On hospitalization day 2 she was made an inpatient. Orthopedics was consulted, Dr Lagunas saw the patient in consult for her knee. He recommended knee immobilizer and partial weight bearing. Dr. Jose, pain management, saw the patient in consult for back. MRI was obtained. He recommended kyphoplasty for her L1 compression fracture. She underwent this yesterday. She was also noted to have foul-smelling urine and was started on Cipro when the urinalysis was positive for UTI. Today she is fairly pain-free. She feels very well and ready for discharge. asbestos hazard abatement worker was consulted during her hospitalization arranged home physical therapy for the patient post discharge. Physical Exam Vital Signs: Temp Pulse Resp BP Pulse Ox 97.4 F 70 16 116/65 95 05/14/17 08:39 05/14/17 08:39 05/14/17 08:39 05/14/17 08:39 05/14/17 08:39 Intake & Output 05/13/17 05/14/17 05/15/17 06:59 06:59 06:59 Intake Total 3822 8958 Output Total 4005 2372.5 Balance 1547 6585.5 Weight 79.8 kg 78.8 kg General appearance: PRESENT: no acute distress, well-developed, well-nourished Head exam: PRESENT: atraumatic, normocephalic Eye exam: PRESENT: conjunctiva pink, EOMI, PERRLA. ABSENT: scleral icterus Ear exam: PRESENT: normal external ear exam Mouth exam: PRESENT: moist, tongue midline Neck exam: ABSENT: carotid bruit, JVD, lymphadenopathy, thyromegaly Respiratory exam: PRESENT: clear to auscultation ann. ABSENT: rales, rhonchi, wheezes Cardiovascular exam: PRESENT: RRR. ABSENT: diastolic murmur, rubs, systolic murmur Pulses: PRESENT: normal dorsalis pedis pul Vascular exam: PRESENT: normal capillary refill GI/Abdominal exam: PRESENT: normal bowel sounds, soft. ABSENT: distended, guarding, mass, organolmegaly, rebound, tenderness Rectal exam: PRESENT: deferred Extremities exam: PRESENT: full ROM. ABSENT: calf tenderness, clubbing, pedal edema Neurological exam: PRESENT: alert, awake, oriented to person, oriented to place , oriented to time, oriented to situation, CN II-XII grossly intact. ABSENT: motor sensory deficit Psychiatric exam: PRESENT: appropriate affect, normal mood. ABSENT: homicidal ideation, suicidal ideation Skin exam: PRESENT: dry, intact, warm. ABSENT: cyanosis, rash Results Laboratory Results: 05/13/17 04:06 05/13/17 04:06 05/12/17 10:20 Catheterized Urine Urine Culture - Final NO GROWTH 2 DAYS Impressions: Knee X-Ray 05/06/17 13:15 IMPRESSION: Lipoma hemarthrosis from fracture. A displaced fracture is not identified. Patient will undergo CT of the right knee shortly. Chest X-Ray 05/06/17 13:18 IMPRESSION: No acute findings Lower Extremity CT 05/06/17 14:20 IMPRESSION: Radiographically occult fracture of the right knee with a lipohemarthrosis Lumbar Spine CT 05/06/17 14:20 IMPRESSION: Acute L1 vertebral body compression deformity with less than 25% overall loss of height. Lumbar Spine MRI 05/08/17 00:00 IMPRESSION: Acute L1 compression fracture with approximately 25% loss of height , no retropulsion, and no extension to the pedicles. Amenable to kyphoplasty. Mild spinal stenosis L4-5. Fluoroscopy 05/13/17 00:00 IMPRESSION: Intra procedural imaging and fluoro Lumbar Spine X-Ray 05/13/17 00:00 IMPRESSION: Intra procedural imaging and fluoro Qualifiers [facility]INT BEING DISCHARGED WITH ANY OF THE FOLLOWING DIAGNOSIS?: No Plan Discharge Plan: Home with family Time Spent: Less than 30 Minutes
--- NOTE | 2017-05-14 10:58 | PROGRESS NOTE E ---
Progress Note NAME: TANA SILVA : 1955 AGE: 62Y DATE: 05/14/2017 ROOM: 528 SUBJECTIVE: Postop day #1 status post kyphoplasty L1 vertebral body. The patient reports significant improvement today. She was very pleased that she went through with the procedure. She has been able to ambulate and used considerably less medications. She is now prepared to be discharged. OBJECTIVE: On examination, she is alert, bright, and cheerful. Her wounds looked very good. No drainage or erythema or swelling noted. She is neurologically intact. IMPRESSION: Status post balloon kyphoplasty L1 vertebral body. RECOMMENDATIONS: The patient has been advised to contact the office for followup in 1-2 weeks. We will discuss osteoporosis and concerns regarding possible future fractures. She also understands to contact me should she have any change in status or deterioration in pain control. DICTATING PHYSICIAN: JOLLY GAMEZ M.D. [id number] PHY#: [id number] ID: [id number] JOB#: [id number] ACCT: [id number] cc:JOLLY GAMEZ M.D. >
== END 2017-05-14 11:49 | disposition home health service (06) | DRG 516 ==
LOC: ER 12:08 → UNDOADMOB 20:30 → EH 20:30 → INTOOBSV 20:30 → EH 20:34 → 4S 22:19 → 4W 05-08 20:54 → OBSVTOIN 05-09 14:01 → 5 05-10 06:17
PROVIDERS: ADMIT Family Medicine; ATTEND Family Medicine
PROC: 0QU03JZ Supplement Lumbar Vertebra with Synthetic Substitute, Percutaneous Approach (ICD-10-PCS; 2017-05-13)
PROC: 0QS03ZZ Reposition Lumbar Vertebra, Percutaneous Approach (ICD-10-PCS; principal; 2017-05-13 08:15)
DX: S32.010A Wedge compression fracture of first lumbar vertebra, initial encounter for closed fracture (principal); E87.1 Hypo-osmolality and hyponatremia; N39.0 Urinary tract infection, site not specified; S83.91XA Sprain of unspecified site of right knee, initial encounter; S89.81XA Other specified injuries of right lower leg, initial encounter; M81.0 Age-related osteoporosis without current pathological fracture; F32.9 Major depressive disorder, single episode, unspecified; F41.1 Generalized anxiety disorder; F41.8 Other specified anxiety disorders; W11.XXXA Fall on and from ladder, initial encounter; Y93.9 Activity, unspecified; Y92.9 Unspecified place or not applicable; Z60.2 Problems related to living alone; Z98.84 Bariatric surgery status; Z85.3 Personal history of malignant neoplasm of breast; Z90.12 Acquired absence of left breast and nipple
CPT/HCPCS: 01936; 36415; 51702; 71020; 72100; 72110; 72131; 72148; 80048; 81001; 85025; 85610; 85730; 87086; 96374; 96375; 96376; 99285; G0378; J0690; J0744; J1100; J1650; J1741; J2250; J2270; J2405; J2550; J2704; J2765; J3010; J3490; L1830; Q9966